=== PATIENT | female | born 1965 | race American Indian/Alaskan Native ===

== ENCOUNTER 2017-01-07 16:42 | Emergency (ER) | payer SELFPAY ==
--- NOTE | 2017-01-07 21:25 | Emergency Department Report ---
ED Head Trauma HPI - General Chief complaint: Head Injury Stated complaint: HIT IN FACE Time Seen by Provider: 01/07/17 20:37 Source: patient, EMS Mode of arrival: Ambulatory Limitations: No Limitations - History of Present Illness Initial comments: PT states this afternoon, she was eating lunch at a [employer] and a steel beam fell down and hit her in the L forehead. PT states her L eye vision is blurry. PT states she does wear reading glasses. Pt denies loc. PT states she has a migraine and rates her pain 8 to 9 / 10. Pt has not taken anything for her symptoms. PT states her TDAP is UTD MD Complaint: head injury -: Sudden, hour(s) Time: 13:00 Mechanism of Injury: other (beem fell and landed on pt's head ) Loss of Consciousness: no Previous Trauma to this Area: No Place: other ([employer] ) Severity: severe Severity scale (0 -10): 9 Quality: other (throbbing ) Consistency: constant Other Injuries: none Associated Symptoms: vision changes. denies: confusion, amnesia, nausea, vomiting, syncope, numbness, weakness, neck pain - Related Data Previous Rx's Medication Instructions Recorded Last Taken Type Ibuprofen [Motrin] 600 mg PO Q8H PRN #15 tablet 01/07/17 Unknown Rx Allergies/Adverse reactions: Allergies Allergy/AdvReac Type Severity Reaction Status Date / Time No Known Allergies Allergy Verified 01/07/17 22:33 ED Review of Systems ROS: Stated complaint: HIT IN FACE Other details as noted in HPI Comment: All other systems reviewed and negative Constitutional: denies: fever Eyes: vision change (L eye is blurred ) Cardiovascular: denies: chest pain Gastrointestinal: denies: abdominal pain, nausea, vomiting Genitourinary: denies: abnormal menses Musculoskeletal: denies: back pain Skin: change in color (pt reports bruising ) Neurological: headache. denies: numbness, paresthesias, abnormal gait ED Past Medical Hx - Past Medical History Previous Medical History?: No - Surgical History Past Surgical History?: No - Social History Smoking Status: Current Some Day Smoker Substance Use Type: None - Medications Home Medications: Home Medications Medication Instructions Recorded Confirmed Last Taken Type Ibuprofen [Motrin] 600 mg PO Q8H PRN #15 tablet 01/07/17 Unknown Rx ED Physical Exam - General Limitations: No Limitations General appearance: alert, in no apparent distress - Head Head exam: Present: atraumatic, normocephalic, normal inspection, other ( tenderness to L forehead ) - Expanded Head Exam Expanded Head exam: Absent: laceration, abrasion, contusion, hematoma, racoon eyes, unger's sign - Eye Eye exam: Present: normal appearance, PERRL, EOMI. Absent: conjunctival injection, nystagmus, periorbital swelling, periorbital tenderness Pupils: Present: normal accommodation - Expanded Eye Exam Expanded Eyelids: Normal Inspection: Left (jagdish eye lids wnl ) Pupils: Regular, Round: Bilateral Sclera/Conjunctival: Normal Inspection: Bilateral Visual acuity (R) = 20/: 40 Visual acuity (L) = 20/: 70 With correction: No - ENT ENT exam: Present: normal exam, normal orophraynx, TM's normal bilaterally. Absent: normal external ear exam - Neck Neck exam: Present: normal inspection, full ROM, other (no post midline tenderness ). Absent: tenderness - Respiratory Respiratory exam: Absent: normal lung sounds bilaterally, respiratory distress, chest wall tenderness - Cardiovascular Cardiovascular Exam: Present: regular rate, normal rhythm, normal heart sounds - GI/Abdominal GI/Abdominal exam: Present: soft. Absent: tenderness - Extremities Exam Extremities exam: Present: normal inspection, full ROM - Back Exam Back exam: Present: normal inspection, full ROM. Absent: tenderness, CVA tenderness (R), CVA tenderness (L), muscle spasm, paraspinal tenderness, vertebral tenderness - Neurological Exam Neurological exam: Present: alert, oriented X3, CN II-XII intact, normal gait - Expanded Neurological Exam Expanded Patient oriented to: Present: person, place, time Speech: Present: fluid speech Best Eye Response ([place]): (4) open spontaneously Best Motor Response ([place]): (6) obeys commands Best Verbal Response ([place]): (5) oriented L[place] Total: 15 - Psychiatric Psychiatric exam: Present: normal affect - Skin Skin exam: Present: warm, dry, intact, normal color. Absent: ecchymosis ED Course Vital Signs 01/07/17 19:32 Temperature 98.7 F Pulse Rate 95 H Respiratory 18 Rate Blood Pressure 129/78 O2 Sat by Pulse 100 Oximetry - Reevaluation(s) Reevaluation #1: 01/07/17 23:33 PT states pain decreased sp Tylenol #3 and Toradol. PT aware of CT report and need for follow up. Dr Benavidez aware of pt and agrees with plan of care. - Eye Procedure Alcaine Drops Administered: Yes Eye FB Removal: other (no fb seen ) Progress: PT's L eye was evaluated under wood's lamp. no fb or corneal abrasion seen - Pulse Oximetry Interpretation Digit-Finger Initial Pulse Oximetry Readin Actions Taken: none - Radiology Data Radiology results: report reviewed CT head - NAP - NEXUS Criteria Focal neurological deficit present: No Midline spinal tenderness present: No Altered level of consciousness: No Intoxication present: No Distracting injury present: No NEXUS results: C-Spine can be cleared clinically by these results. Imaging is not required. Critical Care Time: No Critical care attestation.: If time is entered above; I have spent that time in minutes in the direct care of this critically ill patient, excluding procedure time. ED Disposition Clinical Impression: CHI (closed head injury) Qualifiers: Encounter type: initial encounter Qualified Code(s): S09.90XA - Unspecified injury of head, initial encounter Concussion Qualifiers: Encounter type: initial encounter Loss of consciousness presence/duration: without LOC Qualified Code(s): S06.0X0A - Concussion without loss of consciousness, initial encounter Disposition: TO HOME OR SELFCARE Is pt being admited?: No Does the pt Need Aspirin: No Condition: Stable Instructions: Concussion (ED), Minor Head Injury (ED), Acute Headache (ED), Blurred Vision (ED) Additional Instructions: Follow up with PCP in 2-3 days You may need to be evaluated by a Neurologist due to your head injury. Your PCP can help facilitate this Follow up with an eye doctor in the next 24- 48 hours Return to the ED if worsening, vomiting, changes in your vision, passing out or other concerns Prescriptions: Ibuprofen [Motrin] 600 mg PO Q8H PRN #15 tablet PRN Reason: Pain Referrals: PRIMARY OMAR, [Primary Care Provider] - 3-5 Days KELLEY CHAVIRA MD [Staff Physician] - 3-5 Days JOSÉ ANTONIO HUNTER MD [Staff Physician] - 3-5 Days [facility] [Outside] - 3-5 Days [facility] [Outside] - 3-5 Days Forms: Work/School Release Form(ED) Time of Disposition: 23:39
--- NOTE | 2017-01-07 21:35 | Cat Scan Report ---
FINAL REPORT EXAM: CT HEAD/BRAIN WO CON HISTORY: chi TECHNIQUE: CT head without contrast PRIORS: None. FINDINGS: No acute intra-axial or extra-axial hemorrhage is identified. There is no evidence of midline shift or mass effect. The ventricles and sulci are within normal limits. Geller-white matter differentiation is intact. No acute parenchymal abnormalities seen. Bony calvarium is grossly intact. Visualized portions of the mastoids and paranasal sinuses are unremarkable. IMPRESSION: Negative CT head
[2017-01-07] MEDS ORDERED: TYLENOL #3 PO ONE (22:04)
[2017-01-07] MEDS ORDERED: TORADOL IM ONE (22:24)
[2017-01-07] MEDS ORDERED: TORADOL ONE (22:28)
[2017-01-07] MEDS ORDERED: TETRACAINE 0.5% OS STA (23:14)
[2017-01-07] MEDS ORDERED: FUL-GLO OP ONE (23:14)
[2017-01-07 23:48] VITALS: BP 130/77
== END 2017-01-07 23:52 | disposition home or self-care (01) ==
LOC: ED 16:42
DX: S06.0X0A Concussion without loss of consciousness, initial encounter (principal); F17.200 Nicotine dependence, unspecified, uncomplicated; W20.8XXA Other cause of strike by thrown, projected or falling object, initial encounter; Y93.9 Activity, unspecified; Y92.9 Unspecified place or not applicable; Y99.9 Unspecified external cause status
CPT/HCPCS: 70450; 96372; 99284; J1885